=== PATIENT | female | born 1970 | race African-American/Black ===

== ENCOUNTER 2017-08-22 19:30 | Outpatient (CLI) | payer OTHER | END 2017-08-22 19:31 | disposition home or self-care (01) | LOC: SLEEPLAB 19:30 | PROVIDERS: ATTEND Family Medicine | DX: G47.33 Obstructive sleep apnea (adult) (pediatric) (principal); R53.83 Other fatigue; E66.9 Obesity, unspecified; I10 Essential (primary) hypertension | CPT/HCPCS: 95810 ==

== ENCOUNTER 2018-05-09 14:54 | Outpatient (CLI) | payer OTHER | END 2018-05-09 14:55 | disposition home or self-care (01) | LOC: CP 14:54 | PROVIDERS: ATTEND Internal Medicine | DX: R05 Cough (principal); K21.9 Gastro-esophageal reflux disease without esophagitis | CPT/HCPCS: 94060; 94727; 94729 ==

== ENCOUNTER 2018-06-27 08:53 | Day surgery (SDC) | payer OTHER ==
[2018-06-26 15:28] VITALS: BMI 47.2
[2018-06-27 10:22] LABS: Anion Gap 10 mmol/L (10-20); BUN (Urea Nitrogen) 10 mg/dL (7.0-18.7); Calc. Creatinine Clearance 150 mL/min (70-130); Calcium 9.4 mg/dL (7.8-10.44); Carbon Dioxide 27 mmol/L (22-29); Chloride 105 mmol/L (98-107); Estimated GFR-MDRD 88; Glucose 98 mg/dL (70-105); Potassium 4.4 mmol/L (3.5-5.1); Sodium 138 mmol/L (136-145)
--- NOTE | 2018-06-27 11:46 | OP ---
DATE OF PROCEDURE: 06/27/2018 SURGEON: Dr. Peter Sánchez PROCEDURE: Screening colonoscopy. PREOPERATIVE DIAGNOSIS: Colon cancer screening. OPERATIVE PROCEDURE: Informed consent was obtained from the patient. She was sedated with total int ravenous anesthesia. The rectal exam was performed and was normal. The colonoscope was advanced to the cecum where the ileocecal valve and appendiceal orifice were clearly identified. The preparation quality was good. There was some corn obscuring views immediately behind the ileocecal valve and a couple of folds in the ascending colon; however, overall the prep was good and adequate views were ob tained. The colonic mucosa was normal throughout. Retroflexed views in the rectum were normal. IMPRESSION: Normal screening colonoscopy. RECOMMENDATIONS: Repeat colon cancer screening in 10 years.
[2018-06-27] MEDS ORDERED: Lidocaine 1% PF 5 ML VIAL ONE (13:59)
[2018-06-27] MEDS ORDERED: PROPOFOL 200 MG/20 ML VIAL ONE (13:59)
== END 2018-06-27 12:30 | disposition home or self-care (01) ==
LOC: SDC 08:53
PROVIDERS: ATTEND Internal Medicine Gastroenterology
PROC: 0DJD8ZZ Inspection of Lower Intestinal Tract, Via Natural or Artificial Opening Endoscopic (ICD-10-PCS; principal; 2018-06-27)
DX: Z12.11 Encounter for screening for malignant neoplasm of colon (principal); K21.9 Gastro-esophageal reflux disease without esophagitis; I10 Essential (primary) hypertension; J45.909 Unspecified asthma, uncomplicated; Z79.899 Other long term (current) drug therapy
CPT/HCPCS: 80048; J2001; J2704

== ENCOUNTER 2018-11-27 06:30 | Day surgery (SDC) | payer OTHER ==
[2018-11-26 12:34] VITALS: BMI 47.2
--- NOTE | 2018-11-27 11:10 | RAD ---
MYELOGRAM LUMBAR: Date: 11/27/18 HISTORY: 47-year-old female with M51.3 degenerative disc disease, lumbar spine; M54.1 lumbar radiculopathy; M54.5 low back pain. TECHNIQUE: Signed, informed consent obtained. Storage Worker radiographic images of lumbar spine obtained. Review of MRI of lumbar spine of 07/15/[address] [facility] reveals that the conus medullaris terminates at L1- 2. That level was selected for puncture. The patient was placed prone AFGHAN on fluoroscopy table. Skin of lower back prepared and draped in usual sterile fashion. 25 gauge needle used to apply buffered li docaine superficially. 22 gauge 7 spinal needle advanced incrementally under brief, intermittent f luoroscopy, from right paramedian approach at the L2 level. Upon brisk return of clear CSF, a total o f 5 mL of CSF was slowly removed. A total of 10 mL of Isovue-M 200 was injected intrathecally. Spinal needle was removed. The patient tolerated the procedure well. No complications. Total Fluoroscopy Time: 2.5 minutes. Dose Area Product: 983.6 uGy*m^2. FINDINGS: No scoliosis. There are five lumbar-type vertebrae, followed by a transitional level at the lumbosacr al junction, which will be designated as a partially lumbarized S1. There is an AxiaLIF screw at L5 a nd S1. There are bilateral facet fusion screws through the L5-S1 facet joints. Vertebral body heights are maintained. High grade disc space narrowing at the fixated L5-S1 level. Minimal Grade I anteroli sthesis of L4 on L5. All disc spaces superior to the L5 level are not significantly narrowed. No scol iosis. Vertebral body heights are maintained. Injection demonstrates contrast material within a nonst enotic spinal canal. IMPRESSION: 1. Successful lumbar myelogram. 2. Status post AxiaLIF fusion at L5-S1. 3. See separate report of the subsequent CT myelogram. POS: [facility]
--- NOTE | 2018-11-27 12:00 | CT ---
CT lumbar spine with contrast: (CT lumbar myelogram) 11/27/2018 HISTORY: 47-year-old female with low back pain, lumbosacral radiculopathy, and lumbar spondylosis. FINDINGS: Caudal to T12, there are 5 standard lumbar type vertebrae, followed by a transitional level, which wi ll be designated as a slightly partially lumbarized S1 for the purposes of this report. Vertebral bod y heights are maintained. No scoliosis. Conus medullaris terminates at L1-2. The cauda equina is arra nged in a symmetrical, normal distribution throughout the thecal sac. T12-L1: Normal L1-2: Normal L2-3: Normal L3-4: No central stenosis. Disc space maintained. No significant right neural foraminal stenosis. No significant bony left neural foraminal stenosis. There is effacement of the left neural foraminal fat due to a combination of soft tissue density material, and interspersed tiny bits of high density mat erial which could represent contrast material. (The thecal sac injection of contrast material for the myelogram was not at this level). There is no High-grade facet DJD. L4-5: Mild disc space narrowing. Mild diffuse disc bulge. Severe bilateral facet degenerative changes including prominent vacuum joint phenomenon, probable facet joint effusions, and numerous subchondra l cysts. Mild thickening of ligamentum flavum. Slight degenerative retrolisthesis of L4 on L5 due to the degenerative disc disease. Together, these factors result in mild to moderate central spinal judi l stenosis and moderate bilateral neural foraminal stenosis, right worse than left. L5-S1: There is an axiaLIF screw entering from the S1-2 level, vertically traversing the moderately n arrowed L5-S1 disc space, with distal tip in the upper portion of the L5 vertebral body. There are bi lateral arthrodesis screws traversing the bilateral facet joints. Bilateral moderate to severe facet DJD. Moderate to severe bilateral neural foraminal stenosis. No central stenosis. SI joints: Bilateral vacuum joint phenomenon, mild sclerosis, and minimal osteophytosis. IMPRESSION: 1. Lumbar spondylosis consisting of high-grade degenerative disc disease at L5-S1 and high-grade face t arthrosis at L5-S1, and especially at L4-5 (severe). 2. Status post axiaLIF fixation of L5-S1. 3. High-grade neural foraminal stenosis bilaterally at L5-S1, and bilaterally at L4-5. 4. Ill-defined soft tissue density material and high density material in the left L3-4 neural foramen of uncertain etiology. Possibility includes CSF leakage in that location and adjacent inflammatory c hanges. 5. Mild to moderate central spinal canal stenosis at L4-5.
== END 2018-11-27 09:45 | disposition home or self-care (01) ==
LOC: RAD 06:30 → EDSTATUS 08:00 → RAD 09:45
PROVIDERS: ATTEND Neurological Surgery
PROC: B01B1ZZ Fluoroscopy of Spinal Cord using Low Osmolar Contrast (ICD-10-PCS; principal; 2018-11-27)
DX: M51.16 Intervertebral disc disorders with radiculopathy, lumbar region (principal); M47.26 Other spondylosis with radiculopathy, lumbar region; M48.062 Spinal stenosis, lumbar region with neurogenic claudication; I10 Essential (primary) hypertension; F32.9 Major depressive disorder, single episode, unspecified; F41.9 Anxiety disorder, unspecified; E78.00 Pure hypercholesterolemia, unspecified; Z79.51 Long term (current) use of inhaled steroids; Z79.899 Other long term (current) drug therapy; Z98.1 Arthrodesis status
CPT/HCPCS: 62304; 72132

== ENCOUNTER 2019-05-23 11:18 | Outpatient (CLI) | payer OTHER ==
--- NOTE | 2019-05-23 13:51 | MRI ---
MRI OF THE LEFT SHOULDER WITHOUT CONTRAST: Date: 05/23/19 INDICATION: Left anterior shoulder pain. COMPARISON: Left shoulder radiograph dated 02/15/19. FINDINGS: There is a high grade partial thickness articular surface tear involving the mid to posterior suprasp inatus at the footprint measuring approximately 1.1 x 1.3 cm in greatest mediolateral and AP dimensio ns respectively. There is intratendinous delamination that does extend into the anterior infraspinatu s and more proximally up to the level of the musculotendinous junction of the anterior infraspinatus. No muscular atrophy is evident. The partial thickness tear does involve approximately 90% of the ten don thickness and is high grade. The biceps tendon is located. The biceps anchor complex and superior glenoid labrum appears intact. The glenohumeral articular surface is normal appearing. Visualized as pects of the inferior glenohumeral labral ligamentous complex is normal appearing. There is mild hype rtrophy of the AC joint consistent with mild degenerative change. Small amount of fluid is seen in th e subacromial/subdeltoid space. No enlarged lymph nodes are present. IMPRESSION: 1. High grade partial thickness articular surface tear of the mid to posterior supraspinatus with in tratendinous delamination extending into the anterior infraspinatus that projects, more proximally ba ck up to the level of the infraspinatus anterior musculotendinous junction. 2. Mild AC joint osteoarthrosis. POS: [facility]
== END 2019-05-23 11:19 | disposition home or self-care (01) ==
LOC: MRI 11:18
PROVIDERS: ATTEND Orthopaedic Surgery
DX: M25.512 Pain in left shoulder (principal); M75.112 Incomplete rotator cuff tear or rupture of left shoulder, not specified as traumatic; M19.012 Primary osteoarthritis, left shoulder

== ENCOUNTER 2019-06-19 09:17 | Outpatient (CLI) | payer OTHER ==
[2019-06-19 16:34] LABS: #Basophils 0.1 thou/uL (0.0-0.2); #Lymphocytes 2.3 thou/uL (1.20-3.40); #Monocytes 0.5 thou/uL (0.11-0.59); #Neutrophils 3.6 thou/uL (1.40-6.50); %Basophils 1.1 % (0.0-1.0); %Eosinophils 0.6 % (0.0-10.0); %Lymphocytes 35.5 % (21.0-51.0); %Monocytes 7.8 % (0.0-10.0); Hemoglobin 12.9 g/dL (12.0-16.0); Mean Corpuscular HGB CONC 33.4 g/dL (32.0-36.0); Mean Corpuscular Hemoglobin 31.1 pg (27.0-31.0); Mean Platelet Volume 8.8 fL (7.4-10.4); Platelet Count 223 thou/uL (130-400); RBC Distribution Width 12.6 % (11.5-14.5); Red Blood Cell (RBC) Count 4.14 mill/uL (4.20-5.40); White Blood Cell (WBC) Count 6.6 thou/uL (4.8-10.8)
[2019-06-19 16:47] LABS: Bilirubin Negative (Negative); Blood, Urine Negative (Negative); Clarity Turbid (Clear); Glucose, Urine (Dipstick) Normal (Negative); Leukocyte 75 Leu/uL (Negative); Nitrite Negative (Negative); Protein, Urine (Dipstick) Negative (Neg-Trace); Urobilinogen Normal mg/dL (Less than 2); WBC/HPF 0-3 HPF (0-3)
[2019-06-19 16:49] LABS: Bacteria/HPF 1+ HPF (None Seen)
--- NOTE | 2019-06-24 22:54 | EKG ---
Test Reason : Blood Pressure : / mmHG Vent. Rate : 061 BPM Atrial Rate : 061 BPM P-R Int : 116 ms QRS Dur : 068 ms QT Int : 404 ms P-R-T Axes : 019 055 017 degrees QTc Int : 406 ms Normal sinus rhythm Nonspecific T wave abnormality Abnormal ECG When compared with ECG of 09-JAN-2017 12:26, Nonspecific T wave abnormality now evident in Anterior leads Confirmed by FABIOLA JANSEN M.D. ([id number] on 06/24/2019 10:54:39 PM Referred By: ANTONY Confirmed By:FABIOLA JANSEN M.D.
== END 2019-06-19 09:18 | disposition home or self-care (01) ==
LOC: LABBT 09:17
PROVIDERS: ATTEND Orthopaedic Surgery
DX: Z01.818 Encounter for other preprocedural examination (principal); M75.112 Incomplete rotator cuff tear or rupture of left shoulder, not specified as traumatic
CPT/HCPCS: 81001; 85025; 93005; 93010

== ENCOUNTER → 2019-06-20 | Day surgery (SDC) | payer OTHER ==
[2019-06-19 15:29] VITALS: BMI 45.9
[~2019-06-20] MED LIST: Bupivacaine/Epinephrine 0.25% 30 ML VIAL ONE; Fentanyl 100 MCG/2 ML VIAL ONE; Fentanyl 100 MCG/2 ML VIAL SLOW IVP PRN; HYDROcodone/Acetaminophen 5/325 mg Tablet PO PRN; Midazolam HCl 2 mg/2 ml Vial ONE; Ondansetron PF 4 MG/2 ML Vial IVP PRN; Promethazine HCl 25 MG/ML VIAL IM PRN; Ropivacaine 0.2% 550 ML 550 ML NERVE BLCK SCH; Zolpidem Tartrate 5 MG TAB PO PRN; traMADol HCl 50 MG TAB PO PRN
--- NOTE | 2019-06-20 16:44 | OP ---
DATE OF PROCEDURE: 06/20/2019 PREOPERATIVE DIAGNOSIS: Left high-grade partial-thickness tear, supraspinatus and infraspinatus. POSTOPERATIVE DIAGNOSES: 1. Left high-grade partial-thickness tear, infraspinatus. 2. Partial-thickness supraspinatus leading edge tear. 3. Articular cartilage defect in the 9 to 10 o'clock position and with intact labrum [place] complex. PROCEDURES PERFORMED: 1. Left rotator cuff repair. 2. Limited debridement of articular cartilage defect. 3. Debridement Partial thickness supraspinatus tear. VIDEOGRAPHER: None. ANESTHESIA: The patient received a general endotracheal intubation with interscalene block. ESTIMATED BLOOD LOSS: Less than 10 mL. TOURNIQUET TIME: None. IMPLANTS: 4.75 SwiveLocks x2. MEDICATIONS: Ancef 2 g. COMPLICATIONS: None. HISTORY OF PRESENT ILLNESS: Ms. Hartley is a 48-year-old female with over 5 months of left shoulder pain. She had MRI evidence of a high-grade partial-thickness tear. I discussed the risks and benefits of arthroscopic evaluation of left rotator cuff for debridement versus repair with possible biceps tenodesis, subacromial depression. She understood these risks and benefits and elected to proceed. DESCRIPTION OF PROCEDURE: Time-out was performed, designating the patient's left upper extremity as operative site based on site, consents, and marking. After time-out, the patient's left lower extremity was prepped and draped in sterile fashion. I made a posterior working portal, visualized intra-articularly within the shoulder. There was a defect on the anterior aspect of the glenoid cartilage defect with some bleeding and irritation, but otherwise no other full-thickness defect. It was from the 9 to 10 o'clock position. The labrum was attached and there was a small hole as natural inclination of the inferior ligament, consistent with a [place] complex. Subscapular was intact throughout its course. The supraspinatus actually looked good in its course. The biceps looked good. There was some undersurface fraying, but on the peel back, there was no significant tearing in the superior labrum. After placing the anterior portal, did we debrided that small articular defect down. I did not repair anything. It was debrided to back. We then took our final pictures and moved subacromially. We were able to find a leading edge tear in the supraspinatus, and then another one in the infraspinatus. The supraspinatus did not track anywhere I probed it and it stopped, so I just debrided it. When the infraspinatus did fall into the cavitary defect, I then placed a lateral working portal and another small stab incision and placed 4.75 swivellock anchor into that footprint, debrided out, passed 4 sutures through anterior to posterior and tied knots. I attempted to pass another single suture through the small supraspinatus tear, but I could not get a good enough, but I did not want further damage the tendon insertion. Therefore, I left it alone with debridement, placed a 2nd 4.75 SwiveLock laterally anchor down the infraspinatus repair that I did. I then washed, took final pictures, removed and closed with 3-0 nylon. The patient will be discharged home with a sling after Anesthesia has cleared. I discussed with her she needs to sleep upright and wear CPAP to help with shortness of breath from block. The patient will be discharged home with [place] for pain relief. The patient will follow up with me in 2 weeks. Job ID: [id number] [facility]OSPITALKimberly
== END ==
LOC: SDC 06:52
PROVIDERS: ATTEND Orthopaedic Surgery
PROC: 0LQ24ZZ Repair Left Shoulder Tendon, Percutaneous Endoscopic Approach (ICD-10-PCS; principal; 2019-06-20)
PROC: 3E0T3BZ Introduction of Anesthetic Agent into Peripheral Nerves and Plexi, Percutaneous Approach (ICD-10-PCS; principal; 2019-06-20)
DX: M75.112 Incomplete rotator cuff tear or rupture of left shoulder, not specified as traumatic (principal); M19.012 Primary osteoarthritis, left shoulder; I10 Essential (primary) hypertension; G89.18 Other acute postprocedural pain; Z79.899 Other long term (current) drug therapy
CPT/HCPCS: A4306; J0690; J2250; J2795; J3010

== ENCOUNTER 2019-07-30 13:09 | Outpatient (CLI) | payer OTHER ==
--- NOTE | 2019-07-30 15:41 | MRI ---
MRI BRAIN WITH AND WITHOUT CONTRAST: DATE: 07/30/2019. HISTORY: A 48-year-old female with intractable headache. TECHNIQUE: Multiple sequences obtained in axial, sagittal, and coronal planes; pre and post IV injection of gado linium-based contrast agent: 20 mL MultiHance. FINDINGS: The ventricles are normal in size and configuration. There is no major intraaxial signal abnormality , restricted diffusion, abnormal intraaxial enhancement, mass, midline shift or any other mass effect , recent intraaxial hemorrhage, or extraaxial fluid collection. IMPRESSION: Normal. jn[] POS: [facility]
== END 2019-07-30 13:10 | disposition home or self-care (01) ==
LOC: SCSMRI 13:09
PROVIDERS: ATTEND Nurse Practitioner Acute Care
DX: R51 Headache (principal)
CPT/HCPCS: 70553

== ENCOUNTER 2020-04-27 12:29 | Emergency (ER) | payer SELFPAY ==
[2020-04-27 13:19] LABS: #Basophils 0.1 thou/uL (0.0-0.2); #Lymphocytes 1.1 thou/uL (1.20-3.40); #Monocytes 0.5 thou/uL (0.11-0.59); %Basophils 0.7 % (0.0-1.0); %Eosinophils 0.1 % (0.0-10.0); %Lymphocytes 12.4 % (21.0-51.0); %Monocytes 5.9 % (0.0-10.0); Hemoglobin 14.1 g/dL (12.0-16.0); Mean Corpuscular HGB CONC 34.3 g/dL (32.0-36.0); Mean Corpuscular Hemoglobin 32.2 pg (27.0-31.0); Mean Corpuscular Volume 93.8 fL (78.0-98.0); Mean Platelet Volume 8.8 fL (7.4-10.4); Platelet Count 244 thou/uL (130-400); RBC Distribution Width 12.2 % (11.5-14.5); Red Blood Cell (RBC) Count 4.37 mill/uL (4.20-5.40); White Blood Cell (WBC) Count 8.6 thou/uL (4.8-10.8)
[2020-04-27 13:38] LABS: ALT (SGPT) Less than 7 U/L (8-55); AST (SGOT) 9 U/L (5-34); Albumin 4.1 g/dL (3.5-5.0); Alkaline Phosphatase 57 U/L (40-110); Anion Gap 14 mmol/L (10-20); BUN (Urea Nitrogen) 12 mg/dL (7.0-18.7); Bilirubin, Total 1.3 mg/dL (0.2-1.2); Calc. Creatinine Clearance 0 mL/min (70-130); Carbon Dioxide 26 mmol/L (22-29); Chloride 97 mmol/L (98-107); Estimated GFR-MDRD Greater than 90; Globulin 2.7 g/dL (2.4-3.5); Glucose 99 mg/dL (70-105); Lipase 15 U/L (8-78); Potassium 3.1 mmol/L (3.5-5.1); Protein, Total 6.8 g/dL (6.0-8.3); Sodium 134 mmol/L (136-145)
[2020-04-27] MEDS ORDERED: Ondansetron PF 4 MG/2 ML Vial ONE (14:03)
[2020-04-27 14:06] LABS: Bacteria/HPF None Seen HPF (None Seen); Bilirubin Negative (Negative); Blood, Urine Negative (Negative); Clarity Clear (Clear); Glucose, Urine (Dipstick) Normal (Negative); Ketone, Urine Greater than 150 mg/dL (Negative); Leukocyte Negative Leu/uL (Negative); Nitrite Negative (Negative); Protein, Urine (Dipstick) 30 mg/dL (Neg-Trace); RBC/HPF 0-3 HPF (0-3); Specific Gravity, Urine 1.031 (1.002-1.036); Squamous Epithelial 0-3 HPF (0-3); Urobilinogen 12 mg/dL (Less than 2); WBC/HPF 0-3 HPF (0-3); pH, Urine 6.5 (5.0-9.0)
[2020-04-27 14:13] LABS: Pregnancy Test - Urine (BHCG) Negative (Negative); Pregu Control Background? CLEAR/WHITE (CLR/WHITE); Pregu Control Bar Appear? YES (CONTROL BAR); Specific Gravity 1.031 (1.002-1.036)
[2020-04-27] MEDS ORDERED: Potassium Chloride 20 MEQ TAB PO SCH (14:15)
[2020-04-27] MEDS ORDERED: Ondansetron PF 4 MG/2 ML Vial IVP SCH (14:15)
[2020-04-27] MEDS ORDERED: Sodium Chloride 0.9% 1,000 ML IV SCH (14:15)
[2020-04-28] MEDS ORDERED: Potassium Chloride 40 MEQ in Sodium Chloride 0.9% 250 ML 250 ML IVPB SCH (14:00)
--- NOTE | 2020-05-02 12:12 | EKG ---
Test Reason : WEAKNESS Blood Pressure : / mmHG Vent. Rate : 062 BPM Atrial Rate : 062 BPM P-R Int : 150 ms QRS Dur : 076 ms QT Int : 442 ms P-R-T Axes : 039 021 043 degrees QTc Int : 448 ms Normal sinus rhythm Normal ECG Confirmed by RACHEAL Naqvi, ISAI ([id number]), non linear editor OPAL ESPOSITO ([id number] on 05/02/2020 12:11:57 PM Referred By: RACHEAL Confirmed By:ISIA SPRINGER M.D.
== END 2020-04-27 18:25 | disposition home or self-care (01) ==
LOC: ERS 12:29
DX: E87.6 Hypokalemia (principal); R11.2 Nausea with vomiting, unspecified; I10 Essential (primary) hypertension; E78.5 Hyperlipidemia, unspecified; K21.9 Gastro-esophageal reflux disease without esophagitis; Z79.899 Other long term (current) drug therapy
CPT/HCPCS: 36415; 36416; 51701; 80053; 81003; 81015; 81025; 83690; 83735; 84484; 85025; 93005; 96361; 96365; 96366; 96375; J2405

== ENCOUNTER 2021-01-14 12:38 | Outpatient (CLI) | payer OTHER | END 2021-01-14 12:39 | disposition home or self-care (01) | LOC: CT 12:38 | PROVIDERS: ATTEND Neurological Surgery | DX: G91.9 Hydrocephalus, unspecified (principal); Z98.2 Presence of cerebrospinal fluid drainage device | CPT/HCPCS: 70450 ==

== ENCOUNTER 2021-02-10 13:27 | Outpatient (CLI) | payer OTHER ==
[2021-02-10 20:20] LABS: Hemoglobin 12.4 g/dL (12.0-15.5); Mean Corpuscular HGB CONC 31.1 g/dL (32.0-36.0); Mean Corpuscular Hemoglobin 30.2 pg (27.0-33.0); Mean Corpuscular Volume 97.3 fl (81.6-98.3); Mean Platelet Volume 10.7 fl (7.4-10.4); Platelet Count 274 10x3/uL (150-450); RBC Distribution Width 12.5 % (11.5-14.5); White Blood Cell (WBC) Count 5.6 10x3/uL (3.5-10.5)
[2021-02-10 20:33] LABS: INR-International Normal Ratio 0.9; PTT 27.8 sec (22.0-33.0); Prothrombin Time 10.5 sec (9.5-12.1)
== END 2021-02-10 13:28 | disposition home or self-care (01) ==
LOC: LABBT 13:27
PROVIDERS: ATTEND Neurological Surgery
DX: Z01.818 Encounter for other preprocedural examination (principal); G93.89 Other specified disorders of brain
CPT/HCPCS: 85027; 85610; 85730; 93005; 93010

== ENCOUNTER 2021-02-10 13:45 | Inpatient (IN) | payer OTHER ==
[2021-02-15] MEDS ORDERED: Lidocaine 0.5%/Epinephrine 1:200,000 50 ml Vial ONE (06:10)
[2021-02-15] MEDS ORDERED: Thrombin 5000 UNITS/5 ML VIAL ONE (06:10)
[2021-02-15] MEDS ORDERED: Bacitracin Zinc Ointment 30 gm TUBE ONE (06:10)
[2021-02-15] MEDS ORDERED: Fentanyl 250 MCG/5 ML VIAL ONE (06:44)
[2021-02-15] MEDS ORDERED: Propofol 1,000 MG/100 ML VIAL IV ONE (06:44)
[2021-02-15] MEDS ORDERED: Albumin 5% 500 ML ONE (06:44)
[2021-02-15] MEDS ORDERED: Vancomycin 1 GM/200 ML BAG ONE (06:46)
[2021-02-15] MEDS ORDERED: Midazolam HCl 2 mg/2 ml Vial ONE (08:06)
[2021-02-15] MEDS ORDERED: PROPOFOL 200 MG/20 ML VIAL ONE (08:25)
[2021-02-15] MEDS ORDERED: PHENYLEPHRINE-NS 100 MCG/ML 10 ML SYRINGE ONE (08:25)
[2021-02-15] MEDS ORDERED: Dexamethasone 20 MG/5 ML VIAL ONE (08:25)
[2021-02-15] MEDS ORDERED: Ondansetron PF 4 MG/2 ML Vial ONE (08:25)
[2021-02-15] MEDS ORDERED: Lidocaine 1% PF 5 ML VIAL ONE (08:25)
[2021-02-15] MEDS ORDERED: Rocuronium Bromide 10 MG/ML (10ML VIAL) ONE (08:25)
[2021-02-15] MEDS ORDERED: Phenylephrine 10 MG/ML VIAL ONE (09:50)
[2021-02-15] MEDS ORDERED: PACU-Morphine 4MG/ML VIAL SLOW IVP PRN (10:48)
[2021-02-15] MEDS ORDERED: Morphine Sulfate 2 MG/ML SYRINGE SLOW IVP PRN (10:48)
[2021-02-15] MEDS ORDERED: Promethazine HCl 25 MG/ML VIAL SLOW IVP PRN (10:48)
[2021-02-15] MEDS ORDERED: Ondansetron HCl/PF 4 MG/2 ML Vial IVP PRN (10:48)
[2021-02-15] MEDS ORDERED: HYDROmorphone 2 MG/ML VIAL SLOW IVP PRN (10:48)
[2021-02-15] MEDS ORDERED: Promethazine HCl 25 MG/ML VIAL IM PRN (10:48)
[2021-02-15] MEDS ORDERED: SUGAMMADEX SODIUM 200 MG/2 ML VIAL ONE (10:50)
[2021-02-15] MEDS ORDERED: hydrALAZINE 20 MG/ML VIAL SLOW IVP PRN (10:57)
[2021-02-15] MEDS ORDERED: Labetalol HCl 100 MG/20 ML VIAL SLOW IVP PRN (10:57)
[2021-02-15] MEDS ORDERED: Ondansetron PF 4 MG/2 ML Vial IVP PRN (10:57)
[2021-02-15] MEDS ORDERED: hydrALAZINE 20 MG/ML VIAL ONE (12:49)
[2021-02-15] MEDS: Sodium Chloride 0.9% 1,000 ML IV SCH ×2 (16:07→23:57)
[2021-02-15] MEDS: Morphine 2 MG/ML VIAL SLOW IVP PRN ×2 (16:07→22:17)
[2021-02-15] MEDS: CEFAZOLIN 2 GM in Premix Bag 1 BAG IVPB SCH ×2 (16:09→22:13)
[2021-02-15] MEDS: Gabapentin 300 MG CAP PO SCH (20:12)
[2021-02-15] MEDS: levETIRAcetam 500 MG TAB PO SCH (20:13)
[2021-02-15] MEDS: Famotidine 20 MG TAB PO SCH (20:13)
[2021-02-16 06:11] VITALS: BMI 46.8
[2021-02-16] MEDS: CEFAZOLIN 2 GM in Premix Bag 1 BAG IVPB SCH (06:23)
[2021-02-16] MEDS: Famotidine 20 MG TAB PO SCH (08:25)
[2021-02-16] MEDS: levETIRAcetam 500 MG TAB PO SCH (08:25)
[2021-02-16] MEDS: Gabapentin 300 MG CAP PO SCH (08:25)
[2021-02-16 08:28] VITALS: TEMP 98.4
== END 2021-02-16 09:55 | disposition home or self-care (01) | DRG 26 ==
LOC: SURG A 02-15 06:04 → CCU 02-15 14:58
PROVIDERS: ADMIT Neurological Surgery; ATTEND Neurological Surgery
PROC: 009600Z Drainage of Cerebral Ventricle with Drainage Device, Open Approach (ICD-10-PCS; principal; 2021-02-15)
DX: G91.1 Obstructive hydrocephalus (principal); Z68.42 Body mass index [BMI] 45.0-49.9, adult; I10 Essential (primary) hypertension; E78.5 Hyperlipidemia, unspecified; F41.9 Anxiety disorder, unspecified; F32.9 Major depressive disorder, single episode, unspecified; E66.9 Obesity, unspecified; K21.9 Gastro-esophageal reflux disease without esophagitis; M19.019 Primary osteoarthritis, unspecified shoulder; Z98.51 Tubal ligation status; Z90.710 Acquired absence of both cervix and uterus; Z98.890 Other specified postprocedural states; Z79.51 Long term (current) use of inhaled steroids; Z79.899 Other long term (current) drug therapy
CPT/HCPCS: 70450; 93005; 93010; C1713; J0360; J0690; J1100; J2001; J2250; J2270; J2370; J2405; J2704; J3010; J3370; J3490; P9045

== ENCOUNTER 2021-03-11 14:52 | Outpatient (CLI) | payer OTHER | END 2021-03-11 14:53 | disposition home or self-care (01) | LOC: BICCT 14:52 | PROVIDERS: ATTEND Neurological Surgery | DX: G91.9 Hydrocephalus, unspecified (principal); G93.89 Other specified disorders of brain; Z98.2 Presence of cerebrospinal fluid drainage device | CPT/HCPCS: 70450 ==

== ENCOUNTER 2021-10-01 14:44 | Outpatient (CLI) | payer OTHER | END 2021-10-01 14:45 | disposition home or self-care (01) | LOC: BICCT 14:44 | PROVIDERS: ATTEND Neurological Surgery | DX: G91.9 Hydrocephalus, unspecified (principal) | CPT/HCPCS: 70450 ==